=== PATIENT | male | born 1970 | race Caucasian/White ===

== ENCOUNTER 2019-04-13 20:54 | Outpatient (CLI) | payer BC, OTHER | END 2019-04-14 06:13 | disposition home or self-care (01) | LOC: SLEEP 20:54 | PROVIDERS: ATTEND Physician Assistant | DX: G47.10 Hypersomnia, unspecified (principal); I10 Essential (primary) hypertension; R06.83 Snoring | CPT/HCPCS: 95810 ==

== ENCOUNTER 2019-08-20 05:39 | Outpatient (CLI) | payer OTHER, BC ==
[~2019-08-20] VITALS: Ht 182.8 cm; Wt 122.7 kg
[2019-08-20] MEDS ORDERED: OMEP20TA7 PO (13:53)
== END 2019-08-20 14:12 | disposition home or self-care (01) ==
LOC: PREOP 05:39
PROVIDERS: ATTEND Otolaryngology Otolaryngology/Facial Plastic Surgery
DX: Z01.818 Encounter for other preprocedural examination (principal)

== ENCOUNTER 2019-08-23 07:14 | Day surgery (SDC) | payer BC, OTHER ==
[~2019-08-23] VITALS: Ht 182.8 cm; Wt 122.7 kg
[2019-08-23] VITALS (10 sets, daily range): BP systolic 124–151; BP diastolic 84–96
[~2019-08-23 07:14] MED LIST: OMEP20TA7 PO
--- NOTE | 2019-08-23 07:45 | Progress Note-Pre Operative ---
Pre-Operative Progress Note H&P Reviewed The H&P was reviewed, patient examined and no changes noted. Date Seen by Provider: Aug 23, 2019 Time Seen by Provider: 07:15 Date H&P Reviewed: Aug 23, 2019 Time H&P Reviewed: 07:15 Pre-Operative Diagnosis: Dispalced Nasal Fracture JUSTICE LOPEZ MD Aug 23, 2019 07:45
[2019-08-23 08:05] LABS: BASOPHILS % (AUTO) 0 % (0-10); EOSINOPHILS % (AUTO) 0 % (0-10); HEMATOCRIT 40 % (40-54); LYMPHOCYTES # (AUTO) 1.9 X 10^3 (1.0-4.0); LYMPHOCYTES % (AUTO) 12 % (12-44); MEAN CORPUSCULAR HEMOGLOBIN 31 PG (25-34); MEAN CORPUSCULAR HGB CONC 32 G/DL (32-36); MEAN CORPUSCULAR VOLUME 97 FL (80-99); MEAN PLATELET VOLUME 8.2 FL (7.4-10.4); MONOCYTES # (AUTO) 1.2 X 10^3 (0.0-1.0); MONOCYTES % (AUTO) 8 % (0-12); NEUTROPHILS # (AUTO) 12.3 X 10^3 (1.8-7.8); NEUTROPHILS % (AUTO) 80 % (42-75); PLATELET COUNT 454 10^3/uL (130-400); RED CELL DISTRIBUTION WIDTH 14.6 % (10.0-14.5); WHITE BLOOD COUNT 15.4 10^3/uL (4.3-11.0)
[2019-08-23] MEDS ORDERED: LACTATED RINGERS 1,000 ML IV PRN (08:05)
[2019-08-23] MEDS ORDERED: COCAINE HCL 4% 2 ML SYR ONE (08:17)
[2019-08-23] MEDS ORDERED: LIDOCAINE/EPI 1%-1:100,000 (XYLOCAINE) 20ML ONE (08:17)
[2019-08-23] MEDS ORDERED: MUPIROCIN 2% OINT 22 GM (BACTROBAN) TUBE ONE (08:17)
[2019-08-23] MEDS ORDERED: PHENYLEPHRINE 0.5% NASAL SPR (NEO-SYNEPHRINE) REG ONE (08:17)
[2019-08-23] MEDS ORDERED: LIDOCAINE PF 2% 5 ML (XYLOCAINE) VIAL ONE (08:23)
[2019-08-23] MEDS ORDERED: DEXAMETHASONE 10 MG/ML (DECADRON) 1 ML VIAL ONE (08:23)
[2019-08-23] MEDS ORDERED: MIDAZOLAM 2 MG/2 ML (VERSED) VIAL ONE (08:23)
[2019-08-23] MEDS ORDERED: fentaNYL INJECTION 100 MCG/2 ML AMP ONE (08:23)
[2019-08-23] MEDS ORDERED: ONDANSETRON 4 MG/2 ML (SDV) Z0FRAN ONE (08:23)
[2019-08-23] MEDS ORDERED: proPOfol 200 MG/20 ML (DIPRIVAN) VIAL IV ONE (08:23)
[2019-08-23 08:24] LABS: BUN/CREATININE RATIO 20; CALCIUM 8.6 MG/DL (8.5-10.1); CARBON DIOXIDE 25 MMOL/L (21-32); CHLORIDE 101 MMOL/L (98-107); CREATININE SERUM 0.83 MG/DL (0.60-1.30); GFR ESTIMATED > 60; GLUCOSE 105 MG/DL (70-105); POTASSIUM 4.9 MMOL/L (3.6-5.0); SODIUM 135 MMOL/L (135-145)
[2019-08-23] MEDS ORDERED: SEVOFLURANE (ULTANE) 15 ML INHAL SOLN ONE ×2 (08:27→09:17)
[2019-08-23 08:34] LABS: ANISOCYTOSIS SLIGHT; BAND NEUTROPHILS 1 %; BASOPHILS % (MANUAL) 0 %; EOSINOPHILS % (MANUAL) 0 %; LYMPHOCYTES % (MANUAL) 18 %; MONOCYTES % (MANUAL) 3 %; NEUTROPHILS % (MANUAL) 78 %
[2019-08-23] MEDS ORDERED: NS IV 1000 ML 1,000 ML IV SCH (09:23)
--- NOTE | 2019-08-23 09:23 | Progress Note-Post Operative ---
Post-Operative Progess Note Surgeon (s)/Cryogenics Engineer (s) Surgeon JUSTICE LOPEZ MD Cryogenics Engineer n/a Pre-Operative Diagnosis Dispalced Nasal Fracture Post-Operative Diagnosis same Post-Op Procedure Note Date of Procedure: Aug 23, 2019 Name of Procedure Performed: Closed Reduction of Nasal Fracture Description & Findings Description and Findings: n/a Anesthesia Type gen lma Estimated Blood Loss minimal Packing none. Specimen(s) collected/removed none JUSTICE LOPEZ MD Aug 23, 2019 09:23
[2019-08-23] MEDS ORDERED: HYDROcodone/APAP 5 MG/325 MG (LORTAB) TAB PO PRN (09:30)
[2019-08-23] MEDS ORDERED: APAP 325 MG/10.15 ML LIQ (TYLENOL) UDC PO PRN (09:30)
--- NOTE | 2019-08-23 10:04 | Anesthesia-General Post-Op ---
General Patient Condition Mental Status/LOC: Same as Preop Cardiovascular: Satisfactory Nausea/Vomiting: Absent Respiratory: Satisfactory Pain: Controlled Complications: Absent Post Op Complications Complications None Follow Up Care/Instructions Patient Instructions None needed. Anesthesia/Patient Condition Patient Condition Patient is doing well, no complaints, stable vital signs, no apparent adverse anesthesia problems. No complications reported per nursing. ALICIA HAWKINS CRNA Aug 23, 2019 10:04
[2019-08-23] MEDS ORDERED: HYDR-3812 PO (10:13)
[2019-08-23] MEDS ORDERED: morphine INJ 10 MG/ML 1ML (SYR OR VIAL) IVP ONE (10:15)
[2019-08-23] MEDS ORDERED: ONDANSETRON 4 MG/2 ML (SDV) Z0FRAN IVP PRN (10:15)
== END 2019-08-23 11:15 | disposition home or self-care (01) ==
LOC: SDC 07:14
PROVIDERS: ATTEND Otolaryngology Otolaryngology/Facial Plastic Surgery
DX: S02.2XXA Fracture of nasal bones, initial encounter for closed fracture (principal); K21.9 Gastro-esophageal reflux disease without esophagitis; G43.909 Migraine, unspecified, not intractable, without status migrainosus; E66.01 Morbid (severe) obesity due to excess calories; Z68.37 Body mass index [BMI] 37.0-37.9, adult; Z83.3 Family history of diabetes mellitus; Z82.3 Family history of stroke; Z82.49 Family history of ischemic heart disease and other diseases of the circulatory system; Z79.899 Other long term (current) drug therapy
CPT/HCPCS: 36415; 80048; 85007; 85027; 87081; 93005

== ENCOUNTER 2020-08-07 15:43 | Emergency (ER) | payer BC, OTHER ==
[~2020-08-07 15:43] MED LIST changes: +ACHD5005 PO
[2020-08-07 15:46] VITALS: BP 159/115
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
[2020-08-07] MEDS ORDERED: LIDOCAINE 2% VISCOUS 15 ML UDC PO ONE (16:00)
[2020-08-07] MEDS ORDERED: ASPIRIN 81 MG CHEW (CHILDREN'S ASA) PO ONE (16:00)
[2020-08-07] MEDS ORDERED: ANTACID SUSP 30 ML UDC (MYLANTA) PO ONE (16:00)
[2020-08-07] MEDS ORDERED: ONDANSETRON 4 MG/2 ML (SDV) Z0FRAN IVP ONE (16:00)
[2020-08-07 16:09] LABS: HEMATOCRIT 45 % (40-54); HEMOGLOBIN 15.2 G/DL (13.3-17.7); LYMPHOCYTES % (AUTO) 20 % (12-44); MEAN CORPUSCULAR HEMOGLOBIN 32 PG (25-34); MEAN CORPUSCULAR HGB CONC 34 G/DL (32-36); MEAN CORPUSCULAR VOLUME 94 FL (80-99); MEAN PLATELET VOLUME 8.1 FL (7.4-10.4); NEUTROPHILS % (AUTO) 71 % (42-75); PLATELET COUNT 332 10^3/uL (130-400); WHITE BLOOD COUNT 10.6 10^3/uL (4.3-11.0)
[2020-08-07 16:10] LABS: BASOPHILS % (AUTO) 0 % (0-10); EOSINOPHILS # (AUTO) 0.1 10^3/uL (0.0-0.3); EOSINOPHILS % (AUTO) 1 % (0-10); LYMPHOCYTES # (AUTO) 2.1 X 10^3 (1.0-4.0); MONOCYTES # (AUTO) 0.8 X 10^3 (0.0-1.0); MONOCYTES % (AUTO) 8 % (0-12); NEUTROPHILS # (AUTO) 7.5 X 10^3 (1.8-7.8)
--- NOTE | 2020-08-07 16:15 | Diagnostic Imaging Report ---
EXAMINATION: Single-view chest. CLINICAL INDICATION: Chest pain. FINDINGS: The heart size is upper limits of normal. The mediastinum is unremarkable. There is no pleural effusion, pneumothorax, or pneumonia. IMPRESSION: No acute cardiopulmonary abnormality. Dictated by: Dictated on workstation # [id number]
[2020-08-07 16:17] LABS: INR 0.9 (0.8-1.4); PROTHROMBIN TIME PATIENT 12.5 SEC (12.2-14.7)
--- NOTE | 2020-08-07 16:28 | NUR ---
Patient is refusing to wear heart monitor or blood pressure cuff at this time.
[2020-08-07 16:37] LABS: ALANINE AMINOTRANSFERASE 18 U/L (0-55); ALKALINE PHOSPHATASE 76 U/L (40-136); BILIRUBIN,TOTAL 0.3 MG/DL (0.1-1.0); BUN/CREATININE RATIO 9; CALCIUM 9.2 MG/DL (8.5-10.1); CARBON DIOXIDE 25 MMOL/L (21-32); CHLORIDE 101 MMOL/L (98-107); GFR ESTIMATED 59; GLUCOSE 83 MG/DL (70-105); POTASSIUM 3.7 MMOL/L (3.6-5.0); SODIUM 138 MMOL/L (135-145); TOTAL PROTEIN 7.2 GM/DL (6.4-8.2)
== END 2020-08-07 16:32 | disposition left against medical advice (07) ==
LOC: EDUNIT# 15:43 → ER FS 15:45
DX: R10.13 Epigastric pain (principal); K21.9 Gastro-esophageal reflux disease without esophagitis; G89.29 Other chronic pain; M54.9 Dorsalgia, unspecified; Z87.891 Personal history of nicotine dependence; Z79.891 Long term (current) use of opiate analgesic
CPT/HCPCS: 71045; 80053; 83880; 84484; 85610

== ENCOUNTER → 2021-02-15 | Outpatient (CLI) | payer SELFPAY | LOC: CARD 11:18 | PROVIDERS: ATTEND Internal Medicine Cardiovascular Disease | DX: I25.10 Atherosclerotic heart disease of native coronary artery without angina pectoris (principal); I10 Essential (primary) hypertension; E78.5 Hyperlipidemia, unspecified | CPT/HCPCS: 93306 ==

== ENCOUNTER → 2021-05-12 | Outpatient (CLI) | payer SELFPAY ==
[~2021-05-12] VITALS: Ht 182 cm; Wt 127.0 kg
[~2021-05-12] MED LIST changes: +CATHETER FLUSH 10 ML SYR IV PRN
[2021-05-12 13:07] VITALS: BP 137/89
--- NOTE | 2021-05-12 17:20 | STRESS TEST ---
DATE OF SERVICE: 05/12/2021 EXERCISE MYOVIEW STRESS TEST REPORT Baseline heart rate is 62. Baseline blood pressure 137/89. Baseline EKG is sinus rhythm with no ischemic changes. In summary, the patient was injected with 10.9 mCi of technetium-99 Myoview and the resting images were obtained. Then, the patient started exercising with a baseline heart rate, blood pressure and EKG mentioned above. The patient was able to exercise for 7 minutes 33 seconds on standard Kaushal protocol. With peak exercise level, EKG was showing nondiagnostic changes. He was injected with 33.0 mCi of technetium-99 Myoview. During recovery, heart rate and blood pressure returned to baseline. EKG returned to baseline. The resting and stress images were reviewed and compared in the short axis, horizontal long axis, and vertical long axis views. Review of the images showed diaphragmatic attenuation with mild decreased uptake involving the mid to apical inferior wall with subtle reversibility. SSS is 6, SDS 4, TID value 1.11. On the gated images, the left ventricle appeared to be normal size with normal contractility. Calculated ejection fraction 63%, CONCLUSION: 1. Fair exercise tolerance for 7 minutes 30 seconds on standard Kaushal protocol, total of 9.1METS, achieving maximum heart rate of 143, which is 83% of maximum expected heart rate. 2. Appropriate heart rate and blood pressure response to exercise returned to baseline during recovery. 3. Minimal nondiagnostic EKG changes with exercise returned to baseline during recovery. 4. Diaphragmatic attenuation with mild ischemia involving the mid to apical inferior wall and inferolateral wall with mild reversibility. 5. Normal left ventricular size, ejection fraction 63%. Job ID: [id number] DocumentID: [id number] Dictated Date: 05/12/2021 15:55:41 Armature Inspector Date: 05/12/2021 17:19:55 Dictated By: POONAM DONIS MD
== END ==
LOC: CARD 11:34
PROVIDERS: ATTEND Internal Medicine Cardiovascular Disease
DX: I10 Essential (primary) hypertension (principal); E78.5 Hyperlipidemia, unspecified
CPT/HCPCS: 78452; 93017; A9502

== ENCOUNTER 2021-06-02 10:00 | Day surgery (SDC) | payer SELFPAY ==
[~2021-06-02] VITALS: Ht 182.9 cm; Wt 133.4 kg
[2021-06-02] VITALS (9 sets, daily range): BP systolic 108–138; BP diastolic 59–98
[2021-06-02 07:59] LABS: HEMATOCRIT 47 % (40-54); HEMOGLOBIN 15.4 g/dL (13.3-17.7); MEAN CORPUSCULAR HEMOGLOBIN 31 pg (25-34); MEAN CORPUSCULAR HGB CONC 33 g/dL (32-36); MEAN CORPUSCULAR VOLUME 94 fL (80-99); MEAN PLATELET VOLUME 8.4 fL (9.0-12.2); PLATELET COUNT 324 10^3/uL (130-400); WHITE BLOOD COUNT 10.2 10^3/uL (4.3-11.0)
--- NOTE | 2021-06-02 08:02 | Diagnostic Imaging Report ---
INDICATION: Pre-heart catheterization with coronary angiography. Abnormal stress test, chest pain, coronary artery disease, hypertension, hyperlipidemia. TECHNIQUE: Single view chest 7:56 AM. CORRELATION STUDY: 08/07/2020 FINDINGS: Heart size remains borderline enlarged, stable. Vasculature overall appears within normal limits. No definitive consolidating infiltrate. Left costophrenic angle is slightly blurred may be owing to the cardiac enlargement with trace pleural effusion not excluded. IMPRESSION: 1. Borderline heart size without overt failure. Trace left pleural effusion not excluded. Dictated by: Dictated on workstation # [id number]
[2021-06-02 08:23] LABS: ALANINE AMINOTRANSFERASE 18 U/L (0-55); ALBUMIN 4.1 GM/DL (3.2-4.5); ALKALINE PHOSPHATASE 97 U/L (40-136); BILIRUBIN,TOTAL 0.5 MG/DL (0.1-1.0); BUN/CREATININE RATIO 8; CALCIUM 8.9 MG/DL (8.5-10.1); CARBON DIOXIDE 24 MMOL/L (21-32); CHLORIDE 104 MMOL/L (98-107); CHOLESTEROL 145 MG/DL (< 200); GFR ESTIMATED > 60; GLUCOSE 102 MG/DL (70-105); HDL CHOLESTEROL 32 MG/DL (40-60); SODIUM 138 MMOL/L (135-145); TOTAL PROTEIN 7.4 GM/DL (6.4-8.2); TRIGLYCERIDES 180 MG/DL (<150); VLDL CHOLESTEROL 36 MG/DL (5-40)
[2021-06-02 08:38] LABS: PROTHROMBIN TIME PATIENT 13.3 SEC (12.2-14.7)
[~2021-06-02 10:00] MED LIST changes: +AMLO-251 PO; +ASPI-1238 PO; +ATOR80TA76 PO; -CATHETER FLUSH 10 ML SYR IV PRN; +CLOP75TA28 PO; +CYCL10TA9 PO; +GABA100C PO; +MTP25TSR PO; +NS IV 1000 ML 1,000 ML IV SCH; +OLME40TA12 PO; +TRZ50T PO
--- NOTE | 2021-06-02 11:00 | Conscious Sedation/ASA ---
Conscious Sedation Pre-Proced Time 11:00 ASA Score 3 For ASA 3 and 4: Consider anesthesia and medical clearance. Also, for patients with a history of failed moderate sedation consider anesthesia. Airway Lungs Heart ASA score ASA 1: a normal healthy patient ASA 2: a patient with a mild systemic disease (mid diabetes, controlled hypertension, obesity x ASA 3: a patient with a severe systemic disease that limits activity (angina, COPD, prior Myocardial infarction) ASA 4: a patient with an incapacitating disease that is a constant threat to life (CHF, renal failure) ASA 5: a moribund patient not expected to survive 24 hrs. (ruptured aneurysm) ASA 6: a declared brain- patient whose organs are being harvested. For emergent operations, add the letter E after the classification Mallampati Classification Grade 3 Sedation Plan Analgesia, Amnesia, Plan communicated to team members, Discussed options with patient/fam, Discussed risks with patient/fam The patient is an appropriate candidate to undergo the planned procedure, sedation, and anesthesia. The patient immediately re-assessed prior to indication. POONAM DONIS MD Jun 02, 2021 11:00 am
--- NOTE | 2021-06-02 11:04 | Discharge Inst-Post CATH ---
Discharge Inst-CATH/EP Problems Reviewed?: Yes Post Cardiac Cath/EP D/C Inst Follow Up/Plan Appointment with Dr. Ivan's office in 4 weeks <b>CARDIAC CATH/EP PROCEDURE DISCHARGE INSTRUCTIONS</b> ACTIVITY * Go Home directly and rest. * Limit activity of the leg (or wrist if it was used) for 7 days including aerobics, swimming, jogging, bicycling, etc. * Restrict stair-climbing for 7 days if possible, if not, climb up with your non-cath leg, then bring together on the same step. * Avoid lifting, pushing, pulling or excessive movement of the affected extremity for 7 days. * Customary sexual activity may be resumed after 2 days-use caution not to use a position that strains or causes pain to the affected extremity. * No driving for 24 hours. * NO SMOKING. * Avoid straining for bowel movements for 7 days. * Gentle walking on level ground is allowed. * Returning to work will depend on the type of procedure and the results. Your doctor will discuss this with you. CALL YOUR DOCTOR FOR ANY OF THE FOLLOWING: *If bleeding from the puncture site occurs- Apply gentle pressure to site with clean cloth and call your doctor or EMS. * If a knot or lump forms under the skin, increases in size, or causes pain. * If bruising appears to be worsening or moving further down your leg instead of disappearing. * Temperature above 101 F. CARE OF YOUR GROIN INCISION; * Bruising or purple discoloration of the skin near the puncture site is common. * You may shower only, no bathtub bathing for 5 days. Be careful to avoid slipping as your leg may feel stiff. * If a closure device was used on your femoral artery, please see the attached guide regarding care of the device and your leg. * Leave dressing on FOR 24 hours. CARE OF YOUR WRIST INCISION; * Bruising or purple discoloration of the skin near the puncture site is common. * You may shower. * DO NOT submerge wrist. * Leave dressing on FOR 24 hours. POONAM IVAN MD Jun 02, 2021 11:04 am
--- NOTE | 2021-06-02 11:10 | Cardiac Cath Report ---
Cardiac Cath Report Physician (s)/Line Builder (s) Physician POONAM DONIS MD Pre-Procedure Diagnosis Pre-Procedure Diagnosis: Coronary artery disease Post-Procedure Note Procedure Start Date: Jun 02, 2021 Name of Procedure: Left heart catheterization Aortic arch angiogram Findings/Procedure Note PROCEDURE NOTE: 51 years old gentleman with coronary artery disease, extensive disease, had an abnormal stress test, scheduled for cardiac catheterization possible PTCA. After explaining the procedure to the patient, all pros and cons were explained, all questions were answered. The patient signed the consent and then he was placed on the cardiac catheterization laboratory. Groin was prepped SL fashion local anesthesia was used. Sheath placed in the right radial artery, [place] catheter was advanced to the left ventricular cavity, pressure was measured, pullback LV to aorta was done, intubated the right and left coronary system and angiogram was done then I pulled it back to the aortic arch angiogram and evaluation was done due to the tortuosity during advancing the wire through the aortic arch. At the end of the procedure the sheath was removed. Vascular band was used FINDINGS: Hemodynamics LV 113/10, end-diastolic pressure of 10 Aorta 102/77 mean of 86 ANATOMY: Left Main is free of obstructive disease Left Anterior Descending is moderate in size with patent stent in the mid LAD nonobstructive disease Left Circumflex is moderate in size with moderate to severe ostial stenosis, 60 to 70%, nonobstructive disease Ramus intermedius has patent proximal stent with mild haziness at the ostium nonobstructive disease Right Coronary Artery is large dominant artery with aneurysm in the proximal right coronary artery LV Gram was not done pressure was measured Aorta evaluation showed hypertensive changes in the thoracic aorta and aortic arch, no dissection or aneurysm, slightly tortuous brachiocephalic artery, normal left carotid and left subclavian arteries CONCLUSION: 1. Patent stent in the proximal and mid LAD, proximal ramus intermedius with mild to moderate disease nonobstructive disease 2. Moderate to severe ostial circumflex artery stenosis, in an area of a trifurcation, appears to be nonobstructive, will be treated medically, if needed intervention will be referred to a tertiary care center 3. 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 Normal left ventricular end-diastolic pressure 5. Normal aortic arch, no dissection or aneurysm, normal great vessels of the neck DISCUSSION AND RECOMMENDATION: Continue to maximize medical therapy Anesthesia Type: Conscious Sedation Estimated blood loss (mL): 10 ml Contrast Amount: 52 ml Total Radiation Dose: 455 mGy Post-Procedure Diagnosis Post-operative diagnosis: Chest pain Coronary artery disease Hypertension Hyperlipidemia POONAM DONIS MD Jun 02, 2021 11:10 am
[2021-06-02] MEDS ORDERED: NS IV 1000 ML 1,000 ML IV SCH (11:15)
== END 2021-06-02 13:47 ==
LOC: CATH 10:00 → SDC 11:23 → CATH 13:47
PROVIDERS: ATTEND Internal Medicine Cardiovascular Disease
DX: I25.10 Atherosclerotic heart disease of native coronary artery without angina pectoris (principal); I10 Essential (primary) hypertension; E78.5 Hyperlipidemia, unspecified; E78.2 Mixed hyperlipidemia; R10.13 Epigastric pain; Z79.899 Other long term (current) drug therapy; Z87.891 Personal history of nicotine dependence; Z90.89 Acquired absence of other organs; Z79.02 Long term (current) use of antithrombotics/antiplatelets; Z83.3 Family history of diabetes mellitus; Z82.49 Family history of ischemic heart disease and other diseases of the circulatory system
CPT/HCPCS: 71045; 80053; 80061; 85027; 85610; 85730; 87081; 93458; C1894; 36415

== ENCOUNTER 2022-09-21 05:36 | Outpatient (CLI) | payer OTHER ==
[~2022-09-21] VITALS: Ht 182.9 cm; Wt 125.0 kg
[~2022-09-21 05:36] MED LIST changes: +CYCL10TA25 PO; -CYCL10TA9 PO; -NS IV 1000 ML 1,000 ML IV SCH; -OLME40TA12 PO; +OLME40TA70 PO; +OMEP20TA56 PO; -OMEP20TA7 PO
== END 2022-09-23 13:00 | disposition home or self-care (01) ==
LOC: PREOP 05:36
PROVIDERS: ATTEND Surgery
DX: Z01.818 Encounter for other preprocedural examination (principal)

== ENCOUNTER 2022-10-04 09:39 | Day surgery (SDC) | payer OTHER ==
[~2022-10-04] VITALS: Ht 182.9 cm; Wt 125.0 kg
[2022-10-04 10:00] VITALS: BP 140/95
--- NOTE | 2022-10-04 10:19 | Progress Note-Pre Operative ---
Pre-Operative Progress Note Date of Available H&P: Sep 05, 2022 Date H&P Reviewed: Oct 04, 2022 Time H&P Reviewed: 10:18 History & Physical: H&P Reviewed, Patient Examed, No changes noted Pre-Operative Diagnosis: GERD, altered bowel habits BREANN FLORES DO Oct 04, 2022 10:19
[2022-10-04] MEDS ORDERED: LACTATED RINGERS 1,000 ML IV ONE (10:21)
[2022-10-04] MEDS ORDERED: HURRICAINE EXT TUBE (BENZOCAINE) ONE (10:22)
[2022-10-04] MEDS ORDERED: LACTATED RINGERS 1,000 ML IV STA (10:44)
[2022-10-04] MEDS ORDERED: PROPOFOL INJECTION 50 ML IV ONE (12:48)
--- NOTE | 2022-10-04 13:17 | Discharge Inst-Simple/Standard ---
Discharge Inst-Standard Reconcile Patient Problems Problems Reviewed?: Yes Patient Instructions/Follow Up Plan of Care/Instructions/FU: Follow up in [address] Simms Activity as Tolerated: Yes Discharge Diet: No Restrictions, Other Diet (High Fiber) BREANN SIMMS DO Oct 04, 2022 13:17
--- NOTE | 2022-10-04 13:19 | Anesthesia-General Post-Op ---
MAC Patient Condition Mental Status/LOC: Same as Preop Cardiovascular: Satisfactory Nausea/Vomiting: Absent Respiratory: Satisfactory Pain: Controlled Complications: Absent Post Op Complications Complications None Follow Up Care/Instructions Patient Instructions None needed. Anesthesiology Discharge Order Discharge Order Patient is doing well, no complaints, stable vital signs, no apparent adverse anesthesia problems. No complications reported per nursing. INGRID AZAR CRNA Oct 04, 2022 13:19
[2022-10-04 13:20] VITALS: BP 118/65
[2022-10-04 13:25] VITALS: BP_SYST 119; BP_SYST 124; BP_DIAS 72; BP_DIAS 96
[2022-10-04 13:50] VITALS: BP 124/96
[2022-10-04 14:00] VITALS: BP 124/96
--- NOTE | 2022-10-04 23:36 | OPERATIVE REPORT ---
DATE OF SERVICE: 10/04/2022 PREOPERATIVE DIAGNOSES: GERD, change in bowel habits, blood in stools. POSTOPERATIVE DIAGNOSES: Small hiatal hernia, diverticulosis, sigmoid polyp, internal hemorrhoids. SURGEON: Breann Simms DO. ANESTHESIA: Per [employer]. PROCEDURE: EGD with biopsies, colonoscopy with hot biopsy, lumpectomy x1. INDICATIONS: The patient is a 52-year-old male with GERD symptoms and change in bowel habits. He also has some blood in stools. He understands risks and benefits of procedure and wished to proceed. Consent was signed and on the chart. DESCRIPTION OF PROCEDURE: The patient was taken to the endoscopy suite, placed in left lateral recumbent position. Timeout was performed. Scope was inserted into the mouth, down the esophagus, stomach and the duodenum without difficulty. There were no polyps, masses, ulcerations of the duodenum. Scope was slowly retracted back to the stomach and further insufflated. No polyps, masses or ulcerations. Biopsy of the antrum was obtained. Scope was retroflexed, noting a very small hiatal hernia. No other pathology noted. Scope was returned to the supine position, slowly withdrawn from distal esophagus. Biopsy of the GE junction was obtained. Scope was slowly retracted back until completely removed. No other pathology. Digital rectal exam was performed. No palpable polyps, masses or ulcerations. Scope was inserted in the rectum and all the way to the cecum without difficulty. Prep was adequate, irrigation and suction. Scope was slowly retracted back. No polyps, masses or ulcerations within the cecum, ascending, transverse and descending colon and the sigmoid. Small polyp was present, which hot biopsy polypectomy was performed. Also, noting a moderate amount of diverticulosis present. Once in the rectum, scope was retroflexed. There was no other pathology except for some internal hemorrhoids. The scope was returned to its normal position, slowly withdrawn until completely removed. The patient tolerated the procedure without any complications, taken to recovery in stable condition. RECOMMENDATIONS: The patient will need repeat colonoscopy in 5 years. Any issues before that be seen at that time. Would recommend high fiber diet due to diverticulosis. We will await biopsy results before making any other changes. Job ID: [id number] DocumentID: [id number] Dictated Date: 10/04/2022 13:17:44 French Pastry Cook Date: 10/04/2022 23:34:00 Dictated By: BREANN SIMMS DO
== END 2022-10-04 14:00 | disposition home or self-care (01) ==
LOC: ENDO 09:39
PROVIDERS: ATTEND Surgery
DX: K63.5 Polyp of colon (principal); K44.9 Diaphragmatic hernia without obstruction or gangrene; K57.30 Diverticulosis of large intestine without perforation or abscess without bleeding; K64.8 Other hemorrhoids; K21.9 Gastro-esophageal reflux disease without esophagitis; F17.200 Nicotine dependence, unspecified, uncomplicated
CPT/HCPCS: 88305